=== PATIENT | female | born 1985 | race African-American/Black ===

== ENCOUNTER 2024-04-30 23:57 | Emergency (ER) | payer MEDICAID, OTHER ==
[~2024-04-30] VITALS: Ht 172.7 cm; Wt 91.0 kg
[2024-05-01 00:01] VITALS: BP 108/76; PULSE 93; RESP 18; TEMP 98.1; O2SAT 99
[2024-05-01] MEDS: ACETAMINOPHEN 325MG TABLET PO NR (00:38)
[2024-05-01] MEDS: LIDOCAINE 5% PATCH TOP SCH (00:39)
[2024-05-01 00:53] LABS: HCG SCREEN NEGATIVE
[2024-05-01] MEDS ORDERED: KETOROLAC 30MG/ML VIAL IM NR (01:00)
[2024-05-01] MEDS: SODIUM CHLORIDE 0.9% 1,000 ML IV ONE (01:20)
[2024-05-01] MEDS: METOCLOPRAMIDE HCL 10MG/2ML VIAL IV ONE (01:56)
[2024-05-01] MEDS: MORPHINE SULFATE 4 MG/ML INJ (FOR IV/IM USE) IV ONE (02:25)
[2024-05-01] MEDS ORDERED: IBUP-2029 MT (04:02)
[2024-05-01] MEDS ORDERED: HYDR-4001 MT (04:02)
== END 2024-05-01 04:13 | disposition home or self-care (01) ==
LOC: ER 23:57
DX: S42.401A Unspecified fracture of lower end of right humerus, initial encounter for closed fracture (principal); S13.4XXA Sprain of ligaments of cervical spine, initial encounter; R07.89 Other chest pain; V49.59XA Passenger injured in collision with other motor vehicles in traffic accident, initial encounter; Y93.89 Activity, other specified; Y92.89 Other specified places as the place of occurrence of the external cause; Y99.8 Other external cause status
CPT/HCPCS: 81025; 29105; 99285; 84703; 71045; 73080; 73090; 70450; 70486; 72125; 71250; 93005; 96361; 96374; 96375; J2765; J2270; J7030; Z7610 ×2; A4565